=== PATIENT | female | born 1980 | race African-American/Black ===

== ENCOUNTER 2018-10-19 07:05 | Emergency (ER) | payer MEDICAID, OTHER ==
[~2018-10-19] VITALS: Ht 160 cm; Wt 59.0 kg
[2018-10-19 07:35] VITALS: BP 183/115
[2018-10-19] MEDS ORDERED: cloNIDine HCL 0.1 MG TAB PO ONE (07:45)
[2018-10-19] MEDS ORDERED: ACETAMINOPHEN 500 MG TAB PO ONE (07:45)
== END 2018-10-19 08:56 | disposition home or self-care (01) ==
LOC: EDBD 07:05 → ER 07:05
DX: S46.912A Strain of unspecified muscle, fascia and tendon at shoulder and upper arm level, left arm, initial encounter (principal); I10 Essential (primary) hypertension; F17.210 Nicotine dependence, cigarettes, uncomplicated; F41.9 Anxiety disorder, unspecified; V43.52XA Car driver injured in collision with other type car in traffic accident, initial encounter; Y93.89 Activity, other specified; Y92.89 Other specified places as the place of occurrence of the external cause; Y99.8 Other external cause status